=== PATIENT | female | born 1995 | race Caucasian/White ===

== ENCOUNTER → 2023-07-19 11:16 | Outpatient (REF) | payer OTHER, SELFPAY | LOC: HWRAD 11:16 | PROVIDERS: ATTENDING PHYSICIAN Nurse Practitioner Family | DX: E66.01 Morbid (severe) obesity due to excess calories (principal) | CPT/HCPCS: 76536 ==

== ENCOUNTER 2023-11-07 09:57 | Emergency (ER) | payer OTHER, SELFPAY ==
[2023-11-07 10:03] VITALS: BP 160/86
--- NOTE | 2023-11-07 11:04 | ED.GENMED ---
History of Present Illness
General
Chief Complaint: Skin Problem
Time Seen by Provider: 11/07/23 11:03
Travel History
Have you had any contact with someone who has COVID-19?: No
Do you have any symptoms of coronavirus? Fever > 100 degrees, chills, cough, shortness of breath, sore throat, loss of taste or smell, muscle aches, or headache?: No
History of Present Illness
History of Present Illness:
HPI: Patient presents with cysts near the right groin. She is prone to having cysts/abscesses that require incision and drainage. She is not currently on antibiotics. She has not had any fevers. She has no other significant symptoms.
EXAM:
GENERAL: Well appearing in no distress
HEENT: Moist oral mucosa
CARDIOVASCULAR: No murmurs, normal heart rate, regular rhythm, No chest wall tenderness
PULMONARY: No respiratory distress, breath sounds are clear and equal
ABDOMEN: Soft with no peritoneal signs, no tenderness, elevated BMI
: Normal labia but lateral to the right labia majora, there is 2 palpable cystic lesions
NEUROLOGIC: Excellent strength all extremities, no coordination deficits
PSYCHIATRIC: Appropriate mental status, normal insight and judgement
EXTREMITIES: Nontender, no edema, moves all extremities equally
SKIN: No rash, no lesions
TIME OF INITIAL ENCOUNTER: 11:05 AM
NUMBER AND COMPLEXITY OF PROBLEMS ADDRESSED AT THE ENCOUNTER
� Chronic conditions affecting care: High blood pressure, thalassemia minor, recurrent abscesses
� Acute Exacerbation and/or Progression of Chronic Illness: This is an acute but recurring problem
� Differential Diagnosis includes: Abscess, noninfected cyst, cellulitis
AMOUNT AND/OR COMPLEXITY OF DATA TO BE REVIEWED AND ANALYZED
� I performed an independent evaluation of and my interpretation is:
EKG:
CT:
X-rays:
Laboratory Studies:
Other:
� Review of other/old records: I reviewed records, the patient had been slightly anemic in 2021 had a normal white count then
� Clinical information was obtained by an independent historian: None needed
� Prescriptions/Medications Considered but not given:
� Further testing considered but not performed: Labs not indicated
RISK OF COMPLICATIONS AND/OR MORBIDITY OR MORTALITY OF PATIENT MANAGEMENT
� Social determinants of health affecting care: Lives at home
� Discussion with other providers:
� Escalation of care including admission/observation vs risk of discharge considered: Only small amount of drainage was noted. Will place on Bactrim. Procedure was performed with TORI Rodriguez, in room
Past History
Past History
ED Past Medical History: HTN
Phy Exam
Physical Exam
Physical Exam:
See HPI
Course
Vital Signs
Initial and Last Documented VS:
Initial Vital Signs
Temp Pulse Resp BP Pulse Ox
98.6 F 75 16 160/86 98
11/07/23 10:03 11/07/23 10:03 11/07/23 10:03 11/07/23 10:03 11/07/23 10:03
Last Documented Vital Signs
Temp Pulse Resp BP Pulse Ox
98.6 F 75 16 160/86 98
11/07/23 10:03 11/07/23 10:03 11/07/23 10:03 11/07/23 10:03 11/07/23 10:03
Procedures
Incision/Drainage/Joint Aspiration
Right Lateral Groin:
Anethesia: 1% Lidocaine with Epi
Type of procedure: incise and drain
Description of abscess: less than 3cm
How much fluid was obtained?: scant amount
Fluid description: purulent and bloody
Treatment: left open for drainage
Additional information:
I incised to cystic lesions less than 3 cm each. The superiormost lesion drain some pus however the inferior did not drain any pus.
*Critical Care Note
Total Time (30-74mins, 75-104mins- exclusive of procedures): Not Applicable
ED Attending Note
-
Portions of this chart may have been created with voice recognition software.� Occasional wrong word or��sound alike� substitutions may have occurred due to the inherent limitations of voice recognition software.
Discharge Plan
Departure
Patient Disposition: Home (Routine Discharge)
Date of Disposition: 11/07/23
Time of Disposition: 11:21
Patient with high blood pressure during this ER visit?: Yes
Discharge Problem:
Abscess
Instructions: Skin Abscess
Prescriptions:
New
sulfamethoxazole-trimethoprim [Bactrim DS] 800-160 mg tablet
1 tab PO BID Qty: 14 0RF
No Action
sulfamethoxazole-trimethoprim [Bactrim DS] 800-160 mg tablet
1 tab PO BID Qty: 14 0RF
Referrals:
Taj Lin DO [Family Provider] -
Graham Dyer MD [Active] - Follow up in 2-3 days
Activity Restrictions/Additional Instructions:
I also recommend using Hibiclens/chlorhexidine wash while in the shower daily to help prevent future episodes. I sent a prescription for Bactrim to your pharmacy in [place]. I have also given the contact information for a local surgeon if needed.
Interventions
Interventions:
*Risk Screen - Suicide Last Done: 11/07/23 10:03
*General Assessment Last Done: 11/07/23 10:03
*Neglect/Abuse Screening Last Done: 11/07/23 10:03
Discharge Date and Time
Print Language: AZERI
[2023-11-07 11:20] VITALS: BMI 53.2
== END 2023-11-07 11:30 | disposition home or self-care (01) ==
LOC: EMR 09:57
PROVIDERS: EMERGENCY PHYSICIAN Emergency Medicine; FAMILY PHYSICIAN Family Medicine
DX: L02.214 Cutaneous abscess of groin (principal); I10 Essential (primary) hypertension
CPT/HCPCS: 99282; 10060

== ENCOUNTER 2025-02-07 18:45 | Emergency (ER) | payer BC, SELFPAY ==
[2025-02-07 18:55] VITALS: BP 158/95
--- NOTE | 2025-02-07 20:30 | ED.GENMED ---
History of Present Illness
General
Chief Complaint: Skin Problem
Time Seen by Provider: 02/07/25 20:30
History of Present Illness
History of Present Illness:
FOCUSED PAST MEDICAL HISTORY
- The patient has a history of high blood pressure
REVIEW OF OLD RECORDS
- I saw this patient in October 2023 and had cyst in the right groin at that time I did attempt drainage but at that time, there was not much fluid that was drained.
Note:
CHIEF COMPLAINT(S)
Skin issue potentially related to recent steroid use.
HISTORY OF PRESENT ILLNESS
The patient is a 29-year-old female with a recent history of three weeks of steroid use for poison stiven on her leg. She discontinued the steroids about a week and a half ago. She reports that every time she stops taking steroids, she experiences
symptoms. This was noted in her prior visit in October 2023. The patient is not currently taking any antibiotics. There is a specific area on her side that she reports as tender and uncomfortable when touched.
PAST MEDICAL AND SURGICAL HISTORY
Recent use of steroids for poison stiven.
PHYSICAL EXAM
-General: Well appearing in no distress, elevated BMI
-HEENT: Moist oral mucosa
-Neurologic: Excellent strength all extremities, no obvious coordination deficits
-Psychiatric: Appropriate mental status, normal insight and judgement
-Extremities: Nontender, no edema, moves all extremities equally
-Skin: Just superolateral to the left side of the vulva, there is a 1.5 cm abscess which is mobile with no overlying erythema nor warmth
DIFFERENTIAL DIAGNOSIS
The Differential Diagnosis includes, in no particular order and is not limited to:
- Steroid withdrawal effects
- Localized skin infection
- Allergic reaction
- Abscess
- Persistent dermatitis
- Skin irritation
- Herpetic rash
- Cellulitis
- Contact dermatitis
- Sporotrichosis
SUMMARY OF ENCOUNTER
The patient visited the emergency department due to discomfort in an area on her side, potentially linked to her recent cessation of steroid use for poison stiven. Examination revealed tenderness in the area. There was a discussion regarding the
possible need for numbing the area and attempting to express any discharge.
PLAN
- The plan includes administering numbing medication to the tender area.
- Attempt to express any discharge or pus from the affected area.
MEDICAL DECISION MAKING
- Number and Complexity of Problems Addressed: Chronic conditions affecting care include recent steroid use for poison stiven.
Data:
Category 1
- Lab tests reviewed: None explicitly mentioned.
- Clinical notes: Reviewed visit notes from October 2023 regarding similar symptoms upon steroid discontinuation.
Category 3
- Discussion involved consideration of administering numbing medication and assistance from nursing staff to manage the affected area.
RISK
Prescription medication was considered, but ultimately not given after discussion with patient/family.
The patient�s current presentation did not require further escalation at this time.
DIAGNOSIS
Primary diagnosis: Abscess near the left side of the labia after recent steroid use
I drained a small amount of pus from the affected region.
Past History
Past History
ED Past Medical History: HTN
Phy Exam
Physical Exam
Physical Exam:
See HPI
Course
Orders/Labs/Results
Orders:
Orders
02/07/25 20:48
Wound Culture [Wound/Abscess/Other Culture] Urgent
MARIELY Source: Abscess
Specimen Description:
Comment: Left upper vulva
Sulfamethox./Trimethoprim Ds [Bactrim Ds 800 mg/160 mg] 1 tablet PO NOW STA
Vital Signs
Initial and Last Documented VS:
Initial Vital Signs
Temp Pulse Resp BP Pulse Ox
36.7 C 87 18 158/95 100
02/07/25 18:55 02/07/25 18:55 02/07/25 18:55 02/07/25 18:55 02/07/25 18:55
Last Documented Vital Signs
Temp Pulse Resp BP Pulse Ox
36.7 C 87 18 158/95 100
02/07/25 18:55 02/07/25 18:55 02/07/25 18:55 02/07/25 18:55 02/07/25 20:31
Procedures
Incision/Drainage/Joint Aspiration
Left Anterior Groin:
Anethesia: 1% Lidocaine with Epi
Preparation: cleaned with alcohol wipe
Type of procedure: incise
Description of abscess: less than 3cm
Loculations broken up: Yes
How much fluid was obtained?: small amount
Fluid description: purulent
Treatment: left open for drainage
*Pulse Oximetry
SaO2: 100
Oxygen Mode of Delivery: Room air
Patient hypoxic: no
*Critical Care Note
Total Time (30-74mins, 75-104mins- exclusive of procedures): Not Applicable
ED Attending Note
-
Portions of this chart may have been created with voice recognition software.� Occasional wrong word or��sound alike� substitutions may have occurred due to the inherent limitations of voice recognition software.
Discharge Plan
Departure
Patient Disposition: Home (Routine Discharge)
Date of Disposition: 02/07/25
Time of Disposition: 20:49
Patient with high blood pressure during this ER visit?: Yes
Discharge Problem:
Abscess
Instructions: BLOOD PRESSURE, Skin Abscess
Prescriptions:
New
sulfamethoxazole-trimethoprim [Bactrim DS] 800-160 mg tablet
1 tab PO BID Qty: 14 0RF
No Action
sulfamethoxazole-trimethoprim [Bactrim DS] 800-160 mg tablet
1 tab PO BID Qty: 14 0RF
sulfamethoxazole-trimethoprim [Bactrim DS] 800-160 mg tablet
1 tab PO BID Qty: 14 0RF
Referrals:
Taj Lin DO [Family Provider, Family Practice]
Activity Restrictions/Additional Instructions:
I drained a small amount of pus from the abscess. You can leave this open and attempted to drain more pus if possible. I am sending a prescription to your pharmacy for more antibiotics.
Interventions
Interventions:
*Risk Screen - Suicide Last Done: 02/07/25 18:55
Discharge Date and Time
Print Language: [id number]
[2025-02-07] MEDS: BACTRIM DS 800 MG/160 MG 1 TABLET PO (20:58)
== END 2025-02-07 21:05 | disposition home or self-care (01) ==
LOC: EMR 18:45
PROVIDERS: EMERGENCY PHYSICIAN Emergency Medicine; FAMILY PHYSICIAN Family Medicine
DX: L02.214 Cutaneous abscess of groin (principal); I10 Essential (primary) hypertension
CPT/HCPCS: 99283; 10060; 87070; 87077; 87147; 87186; 87205